=== PATIENT | male | born 1990 | race Caucasian/White ===

== ENCOUNTER 2019-02-05 17:07 | Emergency (ER) | payer MEDICAID ==
--- NOTE | 2019-02-05 17:44 | ED Physician Chart ---
ED Chief Complaint/HPI - Patient Information Date Seen:: 02/05/19 Time Seen:: 17:30 Chief Complaint:: r scapular tip pain percipitated by turning shoveling History of Present Illness:: today sudden onset wants to make sure everything is ok Allergies:: Allergies Allergy/AdvReac Type Severity Reaction Status Date / Time No Known Allergies Allergy Verified 02/05/19 17:25 Vitals:: Vital Signs - 8 hr 02/05/19 17:17 Temp 98.3 F HR 70 RR 18 BP 138/71 O2 Sat % 99 ED Review of Systems - Review of Systems General/Constitutional: No fever Skin: No skin lesions Head: No headache Eyes: No loss of vision ENT: No earache Cardio Vascular: No chest pain, No palpitations Pulmonary: No SOB, No cough, No sputum GI: No nausea, No vomiting G/U: No dysuria, No hematuria Musculoskeletal: Back pain Hematopoietic: No bruising Allergic/Immuno: No urticaria Neurological: No syncope ED Past Medical History - Past Medical History Past Medical History: No significant medical hx Family Medical History - Family Member Mother History Unknown: Yes ED Physical Exam - Physical Examination General/Constitutional: Well-developed, well-nourished, Alert, No distress, GCS 15, Non-toxic appearing, Ambulatory (smiling in no distress) Head: Atraumatic Eyes: Lids, conjuctiva normal Skin: Nl inspection ENMT: External ears, nose nl Neck: Nontender, Full ROM w/o pain Respiratory: Clear to Auscultation Cardio Vascular: RRR Extremities: Full ROM Neuro/Psych: Alert/oriented, DTR's symmetric, Normal sensory exam, Normal motor strength (full range motion back without distress) ED Assessment - Assessment General Assessment: back pain r scapular tip etiology ED Septic Shock - . Is Septic Shock (SBP<90, OR Lactate>4 mmol\L) present?: No - <6hrs of presentation: Vital Signs: Vital Signs - 8 hr 02/05/19 17:17 Temp 98.3 F HR 70 RR 18 BP 138/71 O2 Sat % 99
[2019-02-05 17:46] LABS: URINE SOURCE CLEAN C
[2019-02-05 17:49] LABS: URINE BILIRUBIN NEGATIVE (NEGATIVE); URINE BLOOD NEGATIVE (NEGATIVE); URINE GLUCOSE (UA) NEGATIVE (NEGATIVE); URINE KETONE NEGATIVE (NEGATIVE); URINE LEUKOCYTE ESTERASE NEGATIVE (NEGATIVE); URINE NITRATE NEGATIVE (NEGATIVE); URINE PROTEIN NEGATIVE (NEGATIVE)
[2019-02-05 17:59] LABS: URINE CLARITY CLEAR (CLEAR); URINE COLOR YELLOW; URINE MICROSCOPIC INDICATED? YES
[2019-02-05 18:00] LABS: URINE BACTERIA FEW /hpf (NONE SEEN); URINE EPITHELIAL CELLS NONE SEEN /lpf (FEW); URINE RBC 0-2 /hpf (0-5); URINE WBC 0-2 /hpf (0-5)
[2019-02-05 18:01] LABS: % BASOPHILS 3.1 % (0.0-2.0); % EOSINOPHILS 0.8 % (0.0-5.0); % LYMPHOCYTES 21.3 % (20.0-50.0); % NEUTROPHILS 70.8 % (40.0-80.0); BASOPHILE ABSOLUTE 0.3 Th/cumm (0-0.2); EOSINOPHILE ABSOLUTE 0.1 Th/cmm (0.1-0.4); HEMATOCRIT 47.1 % (41.0-60); HEMOGLOBIN 15.6 gm/dL (12-16); LYMPHOCYTE ABSOLUTE 1.9 Th/cmm (1.5-3.0); MEAN CELL VOLUME 89.4 fl (80-99); MEAN CORPUSCULAR HEMOGLOBIN 29.7 pg (26.0-30.0); MEAN CORPUSCULAR HGB CONC 33.2 pg (28.0-36.0); MONOCYTE ABSOLUTE 0.4 Th/cmm (0.3-1.0); NEUTROPHILE ABSOLUTE 6.1 Th/cmm (1.8-8.0); PLATELET COUNT 220 Th/cmm (150-400); RED BLOOD COUNT 5.27 Mil/cmm (4.30-5.70); RED CELL DISTRIBUTION WIDTH 13.7 % (11.5-20.0); WHITE BLOOD COUNT 8.8 Th/cmm (4.8-10.8)
[2019-02-05 18:19] LABS: ALB/GLOB RATIO 1.7 (1.0-1.8); ALBUMIN 4.8 gm/dL (4.2-5.5); ANION GAP 12.4 (7.0-16.0); BILIRUBIN,TOTAL 0.6 mg/dL (0.3-1.0); BUN - UREA NITROGEN 21 mg/dL (7-25); CALCIUM SERUM 9.8 mg/dL (8.6-10.3); CARBON DIOXIDE 26.2 mEq/L (21.0-31.0); CHLORIDE 101 mEq/L (98-107); CREATININE - SERUM 1.1 mg/dL (0.7-1.3); GFR AFRICAN-AMERICAN > 60.0 ml/min (>90); GFR NON AFRICAN-AMERICAN > 60.0 ml/min; GLUCOSE 89 mg/dL (70-105); POTASSIUM SERUM 3.6 mEq/L (3.5-5.1); SGOT 13 U/L (13-39); SGPT/ALT 13 U/L (7-52); SODIUM SERUM 136 mEq/L (136-145); TOTAL PROTEIN,SERUM 7.6 gm/dL (6.0-8.3)
[2019-02-05 20:16] LABS: ALKALINE PHOSPHATASE 40 U/L (34-104)
--- NOTE | 2019-02-06 09:50 | Diagnostic Imaging Report ---
CHEST X-RAY: 2 views INDICATION: Pneumonia COMPARISON: None FINDINGS: There is no focal consolidation or pleural effusions The heart is normal in size. The osseous structures demonstrate no acute abnormalities. IMPRESSION: No focal airspace consolidation identified.
== END 2019-02-05 18:51 | disposition home or self-care (01) ==
LOC: ER 17:07
DX: M54.9 Dorsalgia, unspecified (principal); M25.511 Pain in right shoulder
CPT/HCPCS: 36415-UA; 71046-TC; 80053-TC; 81001-TC; 85025-TC